=== PATIENT | male | born 1990 | race American Indian/Alaskan Native ===

== ENCOUNTER 2019-01-03 09:23 | Emergency (ER) | payer OTHER ==
[2019-01-03] MEDS ORDERED: BOOSTRIX IM ONE (10:37)
[2019-01-03] MEDS ORDERED: AUGMENTIN 875 MG PO ONE (10:37)
[2019-01-03] MEDS ORDERED: MOTRIN PO ONE (10:37)
--- NOTE | 2019-01-03 11:14 | XRay Report ---
RIGHT WRIST, 3 VIEWS: History: Dog bite. Routine views demonstrate the carpal bones to be well mineralized with well preserved bony mineralization and interosseous joint spaces. The carpal and adjacent articular bones have normal contours. The surrounding soft tissues are unremarkable. IMPRESSION: Unremarkable right wrist.
--- NOTE | 2019-01-03 11:35 | Emergency Department Report ---
ED Animal Bite HPI - General Chief Complaint: Animal Bite Stated Complaint: LFT WRIST DOG BITE Time Seen by Provider: 01/03/19 10:23 Source: patient Mode of arrival: Ambulatory Limitations: No Limitations - History of Present Illness Initial Comments: Patient is a 28-year-old male who was bitten by his own dog early this morning. Patient states his plan with the pit bull/Labrador mix and the dogs snapped at him and bit him on his left wrist. Patient states his dog currently is up-to-date with shots. Patient has some bleeding from some puncture wounds. Patient states he is in considerable pain is rates his pain as 7 out of 10 in severity as aching and throbbing. - Related Data Previous Rx's Medication Instructions Recorded Last Taken Type Amoxicillin/Potassium Clav 1 each PO BID #14 tablet 01/03/19 Unknown Rx [Augmentin 875-125 Tablet] HYDROcodone/ACETAMINOPHEN 1 each PO Q6HR PRN #12 tablet 01/03/19 Unknown Rx [Hydrocodone-Acetamin 5-325 mg] Ibuprofen [Ibu] 800 mg PO Q8H PRN #20 tablet 01/03/19 Unknown Rx Allergies Allergy/AdvReac Type Severity Reaction Status Date / Time No Known Allergies Allergy Unverified 01/03/19 09:25 ED Review of Systems ROS: Stated complaint: LFT WRIST DOG BITE Other details as noted in HPI Comment: All other systems reviewed and negative ED Past Medical Hx - Past Medical History Previous Medical History?: No - Surgical History Past Surgical History?: No - Social History Smoking Status: Never Smoker Substance Use Type: None - Medications Home Medications: Home Medications Medication Instructions Recorded Confirmed Last Taken Type Amoxicillin/Potassium Clav 1 each PO BID #14 tablet 01/03/19 Unknown Rx [Augmentin 875-125 Tablet] HYDROcodone/ACETAMINOPHEN 1 each PO Q6HR PRN #12 tablet 01/03/19 Unknown Rx [Hydrocodone-Acetamin 5-325 mg] Ibuprofen [Ibu] 800 mg PO Q8H PRN #20 tablet 01/03/19 Unknown Rx ED Physical Exam - General Limitations: No Limitations General appearance: alert, in no apparent distress - Head Head exam: Present: atraumatic, normocephalic - Eye Eye exam: Present: normal appearance - ENT ENT exam: Present: mucous membranes moist - Neck Neck exam: Present: normal inspection - Respiratory Respiratory exam: Present: normal lung sounds bilaterally. Absent: respiratory distress - Cardiovascular Cardiovascular Exam: Present: regular rate, normal rhythm. Absent: systolic murmur, diastolic murmur, rubs, gallop - GI/Abdominal GI/Abdominal exam: Present: soft, normal bowel sounds - Rectal Rectal exam: Present: deferred - Extremities Exam Extremities exam: Present: normal inspection, tenderness (to the left wrist. Patient has a single puncture wound on the dorsum and the ventral surface of the wrist.) - Back Exam Back exam: Present: normal inspection - Neurological Exam Neurological exam: Present: alert, oriented X3 - Psychiatric Psychiatric exam: Present: normal affect, normal mood - Skin Skin exam: Present: warm, dry, intact, normal color. Absent: rash ED Course Vital Signs 01/03/19 09:29 Temperature 97.4 F L Pulse Rate 97 H Respiratory 18 Rate Blood Pressure 166/117 O2 Sat by Pulse 99 Oximetry - Reevaluation(s) Reevaluation #1: 01/03/19 11:33 Patient received a tetanus shot. Patient started on Augmentin for infection control. Patient given pain meds the patient will be discharged home. X-ray showed O2 fragments in the arm and no fracture. Critical care attestation.: If time is entered above; I have spent that time in minutes in the direct care of this critically ill patient, excluding procedure time. ED Disposition Clinical Impression: Dog bite Qualifiers: Encounter type: initial encounter Qualified Code(s): W54.0XXA - Bitten by dog, initial encounter Disposition: DC-01 TO HOME OR SELFCARE Is pt being admited?: No Does the pt Need Aspirin: No Condition: Stable Instructions: Animal Bite (ED) Referrals: PRIMARY CARE, [Primary Care Provider] - 3-5 Days Time of Disposition: 11:34
[2019-01-03 11:50] VITALS: BP 156/92
== END 2019-01-03 11:40 | disposition home or self-care (01) ==
LOC: ED 09:23
DX: S61.552A Open bite of left wrist, initial encounter (principal); W54.0XXA Bitten by dog, initial encounter; Y93.89 Activity, other specified; Y92.89 Other specified places as the place of occurrence of the external cause; Y99.8 Other external cause status
CPT/HCPCS: 90471; 90715